=== PATIENT | male | born 1975 | race African-American/Black ===

== ENCOUNTER 2017-06-11 10:25 | Inpatient (IN) | payer OTHER ==
[~2017-06-11] VITALS: Ht 160 cm; Wt 55.3 kg
[~2017-06-11 10:25] MED LIST: HYDR-3583 PO; MEGE40S PO; OMEP20TA PO
[2017-06-11] MEDS ORDERED: ROCURONIUM INJ 50 MG/5 ML SYRINGE IV PUSH ONE (12:00)
[2017-06-11] MEDS ORDERED: PROPOFOL 200 MG/20 ML AMP IV ONE (12:00)
[2017-06-11] MEDS ORDERED: NORMOSOL R INJ 2,000 ML IV ONE (12:00)
[2017-06-11] MEDS ORDERED: GLYCOPYRROLATE 1 MG/5 ML SYRINGE IV PUSH ONE (12:00)
[2017-06-11] MEDS ORDERED: LIDOCAINE HCL 1% PF 5 ML AMPULE OTHER ONE (12:00)
[2017-06-11] MEDS ORDERED: SODIUM CHLORID 0.9% 500 ML INJ 500 ML IV ONE (12:00)
[2017-06-11] MEDS ORDERED: ONDANSETRON HCL 4 MG/2 ML VIAL IV PUSH ONE (12:00)
[2017-06-11] MEDS ORDERED: LACTATED RINGER'S 1000 ML INJ 1,000 ML IV ONE (12:00)
[2017-06-11] MEDS ORDERED: LABETALOL HCL 100 MG/20 ML VIAL IV ONE (12:00)
[2017-06-11] MEDS ORDERED: NEOSTIGMINE 3 MG/3 ML SYR IV ONE (12:00)
[2017-06-11] MEDS ORDERED: INSULIN HUMAN REGULAR 1,000 UNITS/10 ML VIAL SQ PRN (12:30)
[2017-06-11] MEDS ORDERED: METOPROLOL TARTRATE 25 MG TAB PO PRN (12:30)
[2017-06-11] MEDS ORDERED: POVIDONE IODINE 5% (ANTISEPSIS KIT) 4 APPLICATIONS EACH NARE PRN (12:30)
[2017-06-11] MEDS ORDERED: SODIUM CHLORID 0.9% 500 ML IV PRN (12:30)
[2017-06-11] MEDS ORDERED: LEVOFLOXACIN 500 MG PREMIX INJ 100 ML IV SCH (12:30)
[2017-06-11] MEDS ORDERED: LACTATED RINGER'S 1000 ML IV PRN (12:30)
[2017-06-11] MEDS ORDERED: CHLORHEXIDINE GLUCONATE 2 % 1 PACK (2 CLOTHS) TOPICAL PRN (12:30)
[2017-06-11] MEDS ORDERED: ACETAMINOPHEN 1000 MG/100 ML 100 ML IV ONE (13:22)
[2017-06-11] MEDS ORDERED: FAMOTIDINE 20 MG/2 ML VIAL ONE (13:22)
[2017-06-11] MEDS ORDERED: MIDAZOLAM HCL 2 MG/2 ML VIAL ONE ×2 (13:22→13:37)
[2017-06-11] MEDS ORDERED: DEXAMETHASONE SOD PHOS 4 MG/ML VIAL ONE (13:22)
[2017-06-11] MEDS ORDERED: HYDROmorphone HCL PF 2 MG/ML VIAL ONE (16:02)
[2017-06-11] MEDS ORDERED: SUGAMMADEX SODIUM 200 MG/2 ML VIAL IV PUSH ONE ×2 (17:32)
--- NOTE | 2017-06-11 18:07 | PD.OP ---
Operative Report Date of Surgery: Jun 11, 2017 Preoperative Diagnosis: (1) Non-functioning kidney Postoperative Diagnosis: (1) Non-functioning kidney Procedure: Robot-assisted laparoscopic right nephrectomy Anesthesia: General Surgeon: Adryan Venegas Weapons Officer(s): Clifton Vigil Operation and Findings: Indication for procedure: Case of a pleasant 41-year-old gentleman with chronic right flank pain related to an obstructed nonfunctioning right kidney who presents today to undergo a robot-assisted laparoscopic right nephrectomy. Operative procedure in detail: Patient was brought to the operating suite and placed supine on the OR table. He was then placed under general endotracheal anesthesia. He was then repositioned in the left lateral recumbent position and held in place utilizing the beanbag after the table was flexed to separate the pelvis from the thorax. All pressure points were adequately padded. He was then prepped and draped in normal sterile fashion. After appropriate timeout was undertaken I proceeded with creating a pneumoperitoneum utilizing the veress needle using standard technique. The needle was inserted at the site of the anticipated Reports Which Was Subsequently Placed Utilizing the Visual Obturator. The Remaining 2 Robotic Arm Ports and the Train Operator Port Were Then Placed under Direct Vision. Careful Visualization of the Abdomen Was Made and There Was No Evidence of Any Adhesions. I Next Dr. Thurman in Standard Fashion. Next Repositioned Myself over at the Surgeon's Console and Dr. Vigil Remained at the Bedside to Critical Care Nurse Practitioner. I Next Mobilized the Patient's Right Colon by Cutting along the Line of Toldt and Reflected the Colon Medially to Expose the Retroperitoneum. Dr. Vigil Placed a 5 Mm Port Just to the Left of the Midline Inferior to the Xiphoid Process so That a Liver Retraction Grasper Could Be Placed. The Kidney Was Identified and Noted to Have a markedly dilated pelvis. The kidney was carefully mobilized and the hilar vessels were identified along with the ureter. The renal artery and vein were sequentially divided and ligated utilizing the endovascular stapling device. Once the kidney was fully mobilized the ureter was divided and ligated between 2 Hem-o-conner clips. The specimen was placed in a Endo Catch specimen bag. The pneumoperitoneum was dropped down to 5 mmHg and careful inspection was made for active bleeding and none was noted. At this point in time the robot was undocked and a 7 mm CARLA drain was placed via one of the robotic arm ports. I re-scrubbed and repositioned myself back at the patient's bedside and the camera port and first line supervisor port which were in the midline were connected by cutting vertically between the 2 port sites to create a single incision. The specimen was removed through this incision and sent off to pathology. The midline incision was then closed utilizing #1 running PDS suture. The overlying skin edges were then reapproximated with a skin stapling device. The remaining robotic port site and 5 mm liver retraction port site were reapproximated with surgical abad. Sterile dressings were then placed. Total estimated blood loss was 200 cc. The patient tolerated the procedure without complications and was transferred to the PACU in satisfactory condition. Adryan Venegas MD Jun 11, 2017 18:07
[2017-06-11] MEDS ORDERED: Post-op Orders (for Pharmacy) MISC XX ONE (18:15)
[2017-06-11] MEDS ORDERED: HYDROmorphone HCL PF 1 MG/ML VIAL IV PRN (18:15)
[2017-06-11] MEDS ORDERED: DO NOT ADM ANY ANTICOAGULANT DRUGS PRN (18:18)
[2017-06-11] MEDS ORDERED: *MEPERIDINE 25 MG INJ VIAL PERIprocedural Use ONLY ONE (18:19)
[2017-06-11] MEDS: DEXT 5%-NACL 0.45% 1000 ML INJ 1,000 ML IV SCH (18:57)
[2017-06-11] MEDS ORDERED: *ONDANSETRON 4 MG VIAL PERIprocedural Use ONLY ONE (19:11)
[2017-06-11 20:00] VITALS: BP 147/70; PULSE 74; RESP 20; TEMP 97.7; O2SAT 99
[2017-06-11] MEDS: SODIUM CHLORIDE 0.9% FLUSH 10 ML FLUSH IV FLUSH SCH (21:00)
[2017-06-11] MEDS: HYDROmorphone HCL PF 2 MG/ML VIAL IV PRN ×2 (21:42→23:45)
[2017-06-12] VITALS (7 sets, daily range): BP systolic 120–145; BP diastolic 62–77; PULSE 55–81; RESP 18–20; TEMP 97.1–99.2; O2SAT 95–100
[2017-06-12] MEDS: HYDROmorphone HCL PF 2 MG/ML VIAL IV PRN ×6 (01:59→21:58)
[2017-06-12] MEDS: DEXT 5%-NACL 0.45% 1000 ML INJ 1,000 ML IV SCH (02:00)
[2017-06-12] MEDS: ONDANSETRON HCL 4 MG/2 ML VIAL IV PRN ×2 (04:21→12:39)
[2017-06-12 07:15] LABS: HEMATOCRIT 36.3 % (39.0-51.0); REVIEW FLAG FINAL
[2017-06-12 07:21] LABS: BICARBONATE 25.8 MEQ/L (21.0-32.0); POTASSIUM 4.3 MEQ/L (3.5-5.1)
[2017-06-12] MEDS: SODIUM CHLORIDE 0.9% FLUSH 10 ML FLUSH IV FLUSH SCH ×2 (08:42→21:59)
--- NOTE | 2017-06-12 11:10 | HHI.PR ---
Subjective Patient symptoms today Postoperative day #1 Denies any complaints Pain well managed Tolerating clear liquid diet Denies bowel movement Anxious to go home Objective Vital Signs Vital Signs Date Time Temp Pulse Resp B/P (MAP) Pulse Ox O2 Delivery O2 Flow Rate FiO2 06/12/17 08:25 99 21 06/12/17 07:30 97.5 55 19 120/75 (90) 96 06/12/17 04:04 98.2 72 20 129/62 (84) 97 06/12/17 04:02 Room Air 06/12/17 00:30 98.3 77 18 125/71 (89) 100 06/11/17 21:28 Nasal Cannula 3.00 06/11/17 20:00 97.7 74 20 147/70 (95) 99 06/11/17 19:30 62 12 105/63 (77) 100 Nasal Cannula 2 06/11/17 19:15 62 12 116/73 (87) 100 Nasal Cannula 3 06/11/17 19:00 98.7 62 13 110/55 (73) 100 Nasal Cannula 3 06/11/17 18:45 65 14 107/65 (79) 100 Nasal Cannula 3 06/11/17 18:30 69 27 108/73 (85) 100 Nasal Cannula 3 06/11/17 18:16 98.9 86 28 144/82 (102) 100 Nasal Cannula 3 06/11/17 11:13 98.8 66 20 125/78 (94) 100 Intake & Output 06/12/17 06/12/17 07:00 19:00 Intake Total 1505 ml 0 ml Output Total 2280 ml Balance -775 ml 0 ml Intake Oral 0 ml IV Total 1505 ml Output Urine Total 2150 ml Drainage Total 130 ml Result Diagram: 06/12/17 0546 06/12/17 0546 Objective Remarks Abdomen soft, nondistended, nontender Wound dressings dry and intact Extremities well perfused, nontender Minimal serosanguineous output from CARLA drain Medications and IVs Current Medications Medications (Trade) Dose Ordered Sig/Sandro Route Start Time Stop Time Status Last Admin Dextrose/Sodium Chloride 1,000 ml @ 125 mls/hr Q8H IV 06/11/17 18:07 06/12/17 02:00 (NS Flush) 2 ml UNSCH PRN IV FLUSH 06/11/17 18:15 (NS Flush) 2 ml BID IV FLUSH 06/11/17 21:00 (Dilaudid Pf Inj) 1 mg Q2H PRN IV 06/11/17 18:15 06/11/17 19:22 (Dilaudid Pf Inj) 2 mg Q2H PRN IV 06/11/17 18:15 06/12/17 08:39 (Zofran Inj) 4 mg Q6H PRN IV 06/11/17 18:15 06/12/17 04:21 Levofloxacin/ Dextrose 100 ml @ 100 mls/hr Q24H IV 06/12/17 13:00 06/12/17 13:59 (Heparin Inj) 5,000 units Q12H SQ 06/11/17 20:00 Future hold Miscellaneous Information ALL NURSING DEPARTME... UNSCH PRN .XX 06/11/17 18:18 06/12/17 18:17 Assessment and Plan Assessment and Plan Urologic Impression: S/P Robot assisted laparoscopic right radical nephrectomy with excellent post-op course. Plan: #1 DC Stone catheter #2 out of bed with assistance #3 DC I V fluids #4 advance to regular diet #5 resume home meds #6 anticipate removing CARLA drain tomorrow and subsequent discharge home Adryan Venegas MD Jun 12, 2017 11:10
[2017-06-12] MEDS: MEGESTROL ACETATE SUSP 400 MG/10 ML CUP PO SCH ×2 (12:22→15:05)
[2017-06-12] MEDS: PANTOPRAZOLE SOD 20 MG DELAYED RELEASE TAB PO SCH (12:22)
[2017-06-12] MEDS ORDERED: LEVOFLOXACIN 500 MG PREMIX INJ 100 ML IV SCH (13:00)
[2017-06-12] MEDS: ACETAMINOPHEN/HYDROcodone 325 MG/10 MG TAB PO PRN (18:11)
[2017-06-12] MEDS: NICOTINE 14 MG/24 HR PATCH T-DERMAL SCH (19:12)
[2017-06-12] MEDS ORDERED: REMOVE OLD PATCH T-DERMAL SCH (21:00)
[2017-06-12] MEDS: HEPARIN SODIUM - SQ 10,000 UNITS/ML VIAL SQ SCH (21:58)
[2017-06-13] VITALS: BP 114/63; PULSE 85; RESP 18; TEMP 98; O2SAT 98
[2017-06-13] MEDS: HYDROmorphone HCL PF 2 MG/ML VIAL IV PRN ×2 (01:26→06:27)
[2017-06-13] MEDS: SODIUM CHLORIDE 0.9% FLUSH 10 ML FLUSH IV FLUSH PRN ×2 (01:27→06:27)
[2017-06-13 08:00] VITALS: BP 124/77; PULSE 74; RESP 17; TEMP 97.9; O2SAT 96
[2017-06-13] MEDS: ONDANSETRON HCL 4 MG/2 ML VIAL IV PRN (08:18)
[2017-06-13] MEDS: PANTOPRAZOLE SOD 20 MG DELAYED RELEASE TAB PO SCH (08:18)
[2017-06-13] MEDS: ACETAMINOPHEN/HYDROcodone 325 MG/10 MG TAB PO PRN (08:18)
[2017-06-13] MEDS: SODIUM CHLORIDE 0.9% FLUSH 10 ML FLUSH IV FLUSH SCH (08:19)
[2017-06-13] MEDS: MEGESTROL ACETATE SUSP 400 MG/10 ML CUP PO SCH ×2 (08:19→12:39)
[2017-06-13] MEDS: HEPARIN SODIUM - SQ 10,000 UNITS/ML VIAL SQ SCH (08:19)
[2017-06-13] MEDS: NICOTINE 14 MG/24 HR PATCH T-DERMAL SCH (08:19)
[2017-06-13 12:00] VITALS: BP 116/68; PULSE 73; RESP 18; TEMP 98.3; O2SAT 97
--- NOTE | 2017-06-13 13:06 | HHI.DS ---
Discharge Summary Admission Date Jun 12, 2017 at 12:42 Discharge Date: Jun 13, 2017 Admitting Diagnosis Obstructed nonfunctioning right kidney (1) Non-functioning kidney Diagnosis: Principal ICD Codes: N28.9 - Disorder of kidney and ureter, unspecified Status: Chronic Procedures On June 12 patient underwent a robot-assisted laparoscopic right nephrectomy Brief History 41 year-old gentleman with long-standing chronic right renal obstruction with loss of function who was admitted electively to undergo a robot-assisted laparoscopic right nephrectomy. Please refer to admitting history and physical for additional history and pertinent physical findings. CBC/BMP: 06/12/17 0546 06/12/17 0546 Significant Findings Laboratory Tests Test 06/12/17 05:46 Hemoglobin 12.1 GM/DL (13.0-17.0) Hematocrit 36.3 % (39.0-51.0) Random Glucose 126 MG/DL (74-106) Chloride Level 108 MEQ/L (98-107) Estimat Glomerular Filtration Rate 75 ML/MIN (>89) PE at Discharge Abdomen soft, nondistended, nontender Wound sites clean and dry Extremities well-perfused, nontender Hospital Course Patient was admitted on June 12 and underwent surgery as outlined above. The surgery went well without complications. Patient had an unremarkable postop course and by postop day 2 was tolerating regular diet, and bleeding well and pain managed with oral meds. A decision was thus made to discharge the patient home. Pt Condition on Discharge: Good Discharge Disposition: Discharge Home Discharge Instructions DIET: Follow Instructions for: As Tolerated, No Restrictions Activities you can perform: Shower Only-No Bath Activities to avoid: Strenuous Activity Adryan Venegas MD Jun 13, 2017 13:06
[2017-06-13] MEDS ORDERED: PERC10TA27 PO (13:09)
[2017-06-20] MEDS ORDERED: PERC10TA27 PO (14:46)
[2017-07-04] MEDS ORDERED: PERC10TA27 PO (12:00)
[2017-07-11] MEDS ORDERED: HYDR-3583 PO (09:52)
[2017-07-12] MEDS ORDERED: TRIA40P I-BURSAL (10:54)
[2017-07-12] MEDS ORDERED: TRIA40P I-ARTICULR (10:58)
== END 2017-06-13 14:01 | disposition home or self-care (01) | DRG 661 ==
LOC: INTOOBSV 10:25 → HSDI 10:25 → N07B 19:43 → OBSVTOIN 06-12 12:42
PROVIDERS: ADMIT Urology; ATTEND Urology
PROC: 0TT04ZZ Resection of Right Kidney, Percutaneous Endoscopic Approach (ICD-10-PCS; principal; 2017-06-12)
PROC: 8E0W4CZ Robotic Assisted Procedure of Trunk Region, Percutaneous Endoscopic Approach (ICD-10-PCS; 2017-06-12)
DX: N28.9 Disorder of kidney and ureter, unspecified (principal)
CPT/HCPCS: 80048; 85014; 85018; 86850; 86900; 86901; 86920; 88307; 94150; J0131; J1100; J1170; J1644; J1956; J2175; J2250; J2405; J2710; J3010; J7040; J7120

== ENCOUNTER → 2018-03-06 | Outpatient (CLI) | payer OTHER ==
[~2018-03-06] MED LIST changes: -MEGE40S PO; +MEGE40SU PO; -OMEP20TA PO; +RANI150T PO
--- NOTE | 2018-03-06 15:22 | RADRPT ---
EXAM DATE: 03/06/2018 3:01 PM EDT AGE/SEX: 42 years / Male INDICATIONS: Patient feels left kidney functioning after the removal of right kidney in June. CLINICAL DATA: This is the patient's initial encounter. Patient reports that signs and symptoms have been present for 7 - 11 months and indicates a pain score of 0/10. MEDICAL/SURGICAL HISTORY: Gastroesophageal reflux disease. Peptic ulcer. Right renal failure. S chizophrenia. Anxiety. Nephrectomy, right. COMPARISON: No prior exams available for comparison. MEASUREMENTS: Right Kidney:__Surgically absent. cm Left Kidney:__10.7 x 5.2 x 5.3 cm cm FINDINGS: Right Kidney: The right kidney is not identified consistent with previous nephrectomy. Left Kidney: The echotexture is normal. There is no hydronephrosis. There are 2 punctate simple cyst identified these measure 1.1 x 1.1 x 0.7 cm and 0.7 x 0.9 x 0.7 cm Bladder: Within normal limits given the degree of distension. CONCLUSION: 1. Surgically absent right kidney. 2. Punctate simple cysts seen within the left kidney. [facility] Electronically signed by: Cuba Swenson MD 03/06/2018 3:21 PM EDT
== END ==
LOC: HRAD 14:06
PROVIDERS: ATTEND Urology
DX: Z90.5 Acquired absence of kidney (principal)
CPT/HCPCS: 76775